=== PATIENT | female | born 1930 | race Caucasian/White ===

== ENCOUNTER 2017-08-14 22:55 | Emergency (ER) | payer MEDICARE ==
[~2017-08-14] VITALS: Ht 165.1 cm; Wt 60.8 kg
[~2017-08-14 22:55] MED LIST: ASPI81EC PO; ASTRAGALUS ROOT1 GM MC; Bactrim Ds Tab1 EACH PO; CALGLU500 PO; CHOL10002 PO; Curcumin1 GM MC; DICMIS50EC PO; ERGO400 PO; HYOS0.375T PO; LACT10SY PO; Lipo-Flavonoid1 EACH PO; PSYL5.85P PO; ROSU10TA PO; Zofran Odt4 MG PO; [UNRECOGNIZED DRUG - OTHER]
[2017-08-15 00:34] LABS: Source, Urine Voided
[2017-08-15 00:39] LABS: BASOPHILS ABSOLUTE AUTO 0.04 K/mm3 (0.00-0.23); BASOPHILS PERCENT AUTO 1 % (0-2); EOSINOPHILS ABSOLUTE AUTO 0.23 K/mm3 (0.00-0.68); EOSINOPHILS PERCENT AUTO 4 % (0-6); Hematocrit 38.6 % (33.0-51.0); IMMATURE GRAN PERCENT AUTO 0 % (0-1); LYMPHOCYTES ABSOLUTE AUTO 1.13 K/mm3 (0.84-5.20); LYMPHOCYTES PERCENT AUTO 21 % (21-46); MONOCYTES PERCENT AUTO 9 % (4-13); Mean Corpuscular HGB 32.7 pg (26.0-34.0); Mean Corpuscular HGB Conc 33.7 g/dL (31.5-36.5); Mean Corpuscular Volume 97 fL (80-100); NEUTROPHILS ABSOLUTE AUTO 3.47 K/mm3 (1.96-9.15); NEUTROPHILS PERCENT AUTO 65 % (41-73); Platelet Count 273 K/mm3 (150-400); RDW Coefficient Variation 11.8 % (11.7-14.2); RDW Standard Deviation 42.6 fL (35.1-46.3); Red Blood Cell Count 3.97 M/mm3 (3.80-5.20); White Blood Cell Count 5.37 K/mm3 (4.00-11.30)
[2017-08-15 00:40] LABS: Bilirubin, Urine Neg (Neg); Blood, Urine 3+ (Neg); Glucose Qualitative, Urine Neg (Neg); Ketones, Urine Neg (Neg); Leukocyte Esterase, Urine 2+ (Neg); Nitrite, Urine Neg (Neg); Protein, Urine Neg (Neg); Urobilinogen, Urine NORM (Normal); pH, Urine 6.5 (5.0-8.0)
[2017-08-15 00:48] LABS: Appearance, Urine Hazy (Clear); Color, Urine Yellow (P-Yellow)
[2017-08-15 00:49] LABS: Amorphous Light (0-Heavy); Bacteria Mod /hpf; Hyaline Casts 0-2 /lpf (0-2); Red Blood Cells, Urine 0-2 /hpf (0-2); Squamous Epithelial Cells Few /hpf (Few)
[2017-08-15 00:54] LABS: Alanine Aminotransfer (ALT/SGP 41 U/L (12-78); Albumin, Blood 3.6 g/dL (3.4-5.0); Alk Phos 80 U/L (50-136); Anion Gap 8 mmol/L (6-16); Aspartate Aminotrans (AST/SGOT 28 U/L (12-37); Bilirubin, Total 0.3 mg/dL (0.1-1.0); Blood Urea Nitrogen 27 mg/dL (8-24); Bun/Creatinine Ratio 56.1 (12.0-20.0); CO2, Blood 25 mmol/L (21-32); Calcium, Blood 8.8 mg/dL (8.5-10.1); Chloride, Blood 110 mmol/L (98-108); Creatinine, Blood 0.48 mg/dL (0.40-1.00); Globulin, Blood 3.5 g/dL (2.2-4.0); Glomerular Filtration Rate >60 (60-); Glucose, Blood 129 mg/dL (70-99); Sodium, Blood 143 mmol/L (136-145); Total Protein, Blood 7.1 g/dL (6.4-8.2); Troponin I <0.015 ng/mL (0.000-0.040)
== END 2017-08-15 02:38 | disposition home or self-care (01) ==
LOC: ER 22:55
PROVIDERS: Emergency Medicine
DX: R42 Dizziness and giddiness (principal); E78.00 Pure hypercholesterolemia, unspecified; Z88.5 Allergy status to narcotic agent; Z88.6 Allergy status to analgesic agent; Z88.1 Allergy status to other antibiotic agents; Z79.899 Other long term (current) drug therapy; Z79.82 Long term (current) use of aspirin
CPT/HCPCS: 80053; 81001; 84484; 85025; 87086; 93005; 93010; 99283

== ENCOUNTER 2018-05-20 12:14 | Emergency (ER) | payer MEDICARE ==
[~2018-05-20] VITALS: Ht 165.1 cm; Wt 61.2 kg
== END 2018-05-20 14:14 | disposition home or self-care (01) ==
LOC: ER 12:14
DX: S09.90XA Unspecified injury of head, initial encounter (principal); R03.0 Elevated blood-pressure reading, without diagnosis of hypertension; W01.198A Fall on same level from slipping, tripping and stumbling with subsequent striking against other object, initial encounter; Z88.5 Allergy status to narcotic agent; Z88.8 Allergy status to other drugs, medicaments and biological substances; Z88.1 Allergy status to other antibiotic agents; Z79.82 Long term (current) use of aspirin; Z79.899 Other long term (current) drug therapy; E78.00 Pure hypercholesterolemia, unspecified
CPT/HCPCS: 70450; 99283-25

== ENCOUNTER → 2018-07-17 | Outpatient (CLI) | payer MEDICARE ==
[2018-07-19 15:06] LABS: HPV 16 Negative (Negative); HPV 18 Negative (Negative); HPV OTHER HR TYPES Negative (Negative)
== END | disposition home or self-care (01) ==
LOC: LAB SHORT 12:30 → LAB 12:30
PROVIDERS: Nurse Practitioner Women's Health
DX: Z12.4 Encounter for screening for malignant neoplasm of cervix (principal)
CPT/HCPCS: 87624; G0123

== ENCOUNTER → 2018-08-18 | Outpatient (CLI) | payer MEDICARE | END | disposition home or self-care (01) | LOC: LAB SHORT 13:50 → PLD 13:50 | DX: R93.89 Abnormal findings on diagnostic imaging of other specified body structures (principal) | CPT/HCPCS: 88305 ==

== ENCOUNTER → 2019-11-21 | Outpatient (CLI) | payer MEDICARE | END | disposition home or self-care (01) | LOC: LAB 14:08 → LAB SHORT 14:08 | DX: D48.5 Neoplasm of uncertain behavior of skin (principal) | CPT/HCPCS: 88305 ==

== ENCOUNTER 2019-12-13 08:29 | Inpatient (IN) | payer MEDICARE ==
[~2019-12-13] VITALS: Ht 160 cm; Wt 61.2 kg
[~2019-12-13 08:29] MED LIST changes: -ASPI81EC PO; +Aspir 8181 MG PO; -CHOL10002 PO; +POLYOX WSR-3011 GM PO; +VITAMIN D33000 UNIT PO
[2019-12-13 09:14] LABS: BASOPHILS ABSOLUTE AUTO 0.04 K/mm3 (0.00-0.23); BASOPHILS PERCENT AUTO 1 % (0-2); EOSINOPHILS ABSOLUTE AUTO 0.19 K/mm3 (0.00-0.68); EOSINOPHILS PERCENT AUTO 3 % (0-6); Hematocrit 40.9 % (33.0-51.0); Hemoglobin 13.2 g/dL (11.5-16.0); IMMATURE GRAN ABSOLUTE AUTO 0.01 K/mm3 (0.00-0.10); IMMATURE GRAN PERCENT AUTO 0 % (0-1); LYMPHOCYTES ABSOLUTE AUTO 1.63 K/mm3 (0.84-5.20); LYMPHOCYTES PERCENT AUTO 28 % (21-46); MONOCYTES ABSOLUTE AUTO 0.54 K/mm3 (0.16-1.47); MONOCYTES PERCENT AUTO 9 % (4-13); Mean Corpuscular HGB 31.4 pg (26.0-34.0); Mean Corpuscular HGB Conc 32.3 g/dL (31.5-36.5); Mean Corpuscular Volume 97 fL (80-100); Mean Platelet Volume 9.4 fL (9.1-12.4); NEUTROPHILS ABSOLUTE AUTO 3.45 K/mm3 (1.96-9.15); NEUTROPHILS PERCENT AUTO 59 % (41-73); Platelet Count 260 K/mm3 (150-400); RDW Coefficient Variation 12.5 % (11.7-14.2); RDW Standard Deviation 44.7 fL (35.1-46.3); Red Blood Cell Count 4.21 M/mm3 (3.80-5.20); White Blood Cell Count 5.86 K/mm3 (4.00-11.30)
[2019-12-13 09:33] LABS: Alanine Aminotransfer (ALT/SGP 29 U/L (12-78); Albumin, Blood 3.6 g/dL (3.4-5.0); Alk Phos 81 U/L (50-136); Anion Gap 5 mmol/L (6-16); Aspartate Aminotrans (AST/SGOT 18 U/L (12-37); Bilirubin, Total 0.4 mg/dL (0.1-1.0); Blood Urea Nitrogen 18 mg/dL (8-24); Bun/Creatinine Ratio 33.5 (12.0-20.0); CO2, Blood 26 mmol/L (21-32); Chloride, Blood 110 mmol/L (98-108); Creatinine, Blood 0.54 mg/dL (0.40-1.00); Globulin, Blood 3.6 g/dL (2.2-4.0); Glomerular Filtration Rate >60 (60-); Glucose, Blood 94 mg/dL (70-99); Potassium, Blood 4.3 mmol/L (3.5-5.5); Sodium, Blood 141 mmol/L (136-145); Total Protein, Blood 7.2 g/dL (6.4-8.2)
[2019-12-13] MEDS ORDERED: ROSUVASTATIN CA10 MG PO (11:49)
[2019-12-13] MEDS ORDERED: CONSTULOSE10 GM/152 PO (11:49)
[2019-12-13] MEDS ORDERED: PROG100 PO (11:50)
[2019-12-13] MEDS ORDERED: DICLOFENAC MIS PO (11:51)
[2019-12-13] MEDS ORDERED: EFUDEX40 GM TOP (12:03)
[2019-12-13] MEDS ORDERED: AMLO5 PO (12:09)
[2019-12-13] MEDS ORDERED: ARTIFICIAL TEAR15 M2 BOTHEYES (12:14)
[2019-12-13] MEDS ORDERED: METAMUCIL POWD575 GM PO (14:31)
[2019-12-13] MEDS ORDERED: COQ-10100 MG PO (14:55)
[2019-12-13] MEDS ORDERED: GENTEAL TEARS S10 GM BOTHEYES (14:56)
[2019-12-13] MEDS ORDERED: MULTI-VITAMIN1 EAC2 PO (14:57)
--- NOTE | 2019-12-13 16:39 | NUR ---
SHIFT SUMMARY PATIENT ARRIVED TO THE ROOM APPROX 1400 FROM ER. NEURO CHECKS ARE UNREMARKABLE. SHE REPORTS HER LEG STILL FEELS "HEAVY" BUT IS MUCH IMPROVED SINCE PRIOR TO ARRIVAL. STRENGTH IN BLE AND BUE EQUAL. PERRLA. ABLE TO AMBULATE WITH VERBAL CUES. OT SIGNED OFF TODAY. PT STILL TO EVALUATE. DENIES PAIN AND NEEDS. VERY POARCH.
--- NOTE | 2019-12-14 03:58 | NUR ---
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 APPEARED TO SLEEP MOST OF SHIFT. DENIES PAIN. REPORTS N/T TO LOWER EXTREMITY, NO FACIAL DROOP NOTED. 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 BREATHING IS UNLABORED. NO ACUTE CHANGES AT THIS TIME. BED IN LOWEST POSITON WITH CALL LIGHT IN REACH. WILL CONTINUE TO MONITOR AND REPORT TO ONCOMING RN.
[2019-12-14 05:35] LABS: BASOPHILS ABSOLUTE AUTO 0.03 K/mm3 (0.00-0.23); BASOPHILS PERCENT AUTO 1 % (0-2); EOSINOPHILS ABSOLUTE AUTO 0.18 K/mm3 (0.00-0.68); EOSINOPHILS PERCENT AUTO 3 % (0-6); Hematocrit 38.9 % (33.0-51.0); Hemoglobin 12.7 g/dL (11.5-16.0); IMMATURE GRAN ABSOLUTE AUTO 0.01 K/mm3 (0.00-0.10); IMMATURE GRAN PERCENT AUTO 0 % (0-1); LYMPHOCYTES ABSOLUTE AUTO 1.51 K/mm3 (0.84-5.20); LYMPHOCYTES PERCENT AUTO 28 % (21-46); MONOCYTES ABSOLUTE AUTO 0.58 K/mm3 (0.16-1.47); MONOCYTES PERCENT AUTO 11 % (4-13); Mean Corpuscular HGB 31.3 pg (26.0-34.0); Mean Corpuscular HGB Conc 32.6 g/dL (31.5-36.5); Mean Corpuscular Volume 96 fL (80-100); Mean Platelet Volume 9.6 fL (9.1-12.4); NEUTROPHILS ABSOLUTE AUTO 3.04 K/mm3 (1.96-9.15); NEUTROPHILS PERCENT AUTO 57 % (41-73); Platelet Count 256 K/mm3 (150-400); RDW Coefficient Variation 12.5 % (11.7-14.2); RDW Standard Deviation 44.6 fL (35.1-46.3); Red Blood Cell Count 4.06 M/mm3 (3.80-5.20); White Blood Cell Count 5.35 K/mm3 (4.00-11.30)
[2019-12-14 05:57] LABS: Alanine Aminotransfer (ALT/SGP 30 U/L (12-78); Albumin, Blood 3.3 g/dL (3.4-5.0); Alk Phos 71 U/L (50-136); Anion Gap 5 mmol/L (6-16); Aspartate Aminotrans (AST/SGOT 15 U/L (12-37); Bilirubin, Total 0.3 mg/dL (0.1-1.0); Blood Urea Nitrogen 21 mg/dL (8-24); Bun/Creatinine Ratio 35.4 (12.0-20.0); CO2, Blood 28 mmol/L (21-32); Calcium, Blood 9.3 mg/dL (8.5-10.1); Chloride, Blood 108 mmol/L (98-108); Creatinine, Blood 0.59 mg/dL (0.40-1.00); Globulin, Blood 3.3 g/dL (2.2-4.0); Glomerular Filtration Rate >60 (60-); Glucose, Blood 89 mg/dL (70-99); Potassium, Blood 4.4 mmol/L (3.5-5.5); Sodium, Blood 141 mmol/L (136-145); Total Protein, Blood 6.6 g/dL (6.4-8.2)
[2019-12-14] MEDS ORDERED: CLOP75 PO (15:41)
[2019-12-14] MEDS ORDERED: LOSA25 PO (15:41)
--- NOTE | 2019-12-14 16:31 | NUR ---
CALLED IN PATIENT'S MEDICATIONS. DENIES ANY CONCERNS AT THIS TIME. SHE REPORTS THAT HER SON TRIED TO PICK THEM UP AND THEY HAD NOTHING THERE. WILL REMOVE HER IV AND HAVE HER READY FOR DISCHARGE.
--- NOTE | 2019-12-14 18:11 | NUR ---
discharge summary patient iv removed. all instructions talked through with the patient. she denies any extra need for education. medications called to [facility].d enies any other concerns.
== END 2019-12-14 18:46 | disposition home health service (06) | DRG 65 ==
LOC: ER 08:29 → MEDS 12:30 → ENPENDDIS 12-14 15:23 → MEDS 12-14 18:46
PROVIDERS: Physician Assistant; ADMIT Family Medicine
DX: I63.9 Cerebral infarction, unspecified (principal); G81.94 Hemiplegia, unspecified affecting left nondominant side; R29.810 Facial weakness; E78.00 Pure hypercholesterolemia, unspecified; M19.90 Unspecified osteoarthritis, unspecified site; K58.9 Irritable bowel syndrome, unspecified; Z88.8 Allergy status to other drugs, medicaments and biological substances; Z88.5 Allergy status to narcotic agent; Z79.82 Long term (current) use of aspirin; Z79.899 Other long term (current) drug therapy; Z82.3 Family history of stroke
CPT/HCPCS: 36415; 70450; 70496; 70498; 70551; 80053; 82947; 85025; 93005; 93010; 93306; 97110; 97116; 97162; 97165; 97535; 99285-25; A9270-GY; J1650; Q9967

== ENCOUNTER 2020-05-23 21:16 | Emergency (ER) | payer MEDICARE ==
[~2020-05-23] VITALS: Ht 162.6 cm; Wt 61.2 kg
[~2020-05-23 21:16] MED LIST changes: +AMLO5 PO; +ARTIFICIAL TEAR15 M2 BOTHEYES; +CLOP75 PO; +CONSTULOSE10 GM/152 PO; +COQ-10100 MG PO; +DICLOFENAC MIS PO; +EFUDEX40 GM TOP; +GENTEAL TEARS S10 GM BOTHEYES; +LOSA25 PO; +METAMUCIL POWD575 GM PO; +MULTI-VITAMIN1 EAC2 PO; +PROG100 PO; +ROSUVASTATIN CA10 MG PO
[2020-05-23] MEDS ORDERED: GENTEAL TEARS S10 GM (22:00)
[2020-05-23 22:01] LABS: BASOPHILS ABSOLUTE AUTO 0.05 K/mm3 (0.00-0.23); BASOPHILS PERCENT AUTO 1 % (0-2); EOSINOPHILS ABSOLUTE AUTO 0.17 K/mm3 (0.00-0.68); EOSINOPHILS PERCENT AUTO 3 % (0-6); Hematocrit 38.2 % (33.0-51.0); Hemoglobin 12.9 g/dL (11.5-16.0); IMMATURE GRAN ABSOLUTE AUTO 0.01 K/mm3 (0.00-0.10); IMMATURE GRAN PERCENT AUTO 0 % (0-1); LYMPHOCYTES ABSOLUTE AUTO 1.52 K/mm3 (0.84-5.20); LYMPHOCYTES PERCENT AUTO 25 % (21-46); MONOCYTES ABSOLUTE AUTO 0.61 K/mm3 (0.16-1.47); MONOCYTES PERCENT AUTO 10 % (4-13); Mean Corpuscular HGB Conc 33.8 g/dL (31.5-36.5); Mean Corpuscular Volume 95 fL (80-100); Mean Platelet Volume 9.4 fL (9.1-12.4); NEUTROPHILS ABSOLUTE AUTO 3.79 K/mm3 (1.96-9.15); NEUTROPHILS PERCENT AUTO 62 % (41-73); Platelet Count 287 K/mm3 (150-400); RDW Coefficient Variation 11.9 % (11.7-14.2); RDW Standard Deviation 41.7 fL (35.1-46.3); Red Blood Cell Count 4.03 M/mm3 (3.80-5.20); White Blood Cell Count 6.15 K/mm3 (4.00-11.30)
[2020-05-23] MEDS ORDERED: CURCUMIN PO (22:02)
[2020-05-23] MEDS ORDERED: BIOTIN1 MG (22:02)
[2020-05-23] MEDS ORDERED: BIOASTIN PO (22:03)
[2020-05-23 22:22] LABS: Alanine Aminotransfer (ALT/SGP 32 U/L (12-78); Albumin, Blood 3.7 g/dL (3.4-5.0); Albumin/Globulin Ratio 1.1 (0.8-1.8); Alk Phos 81 U/L (50-136); Anion Gap 6 mmol/L (6-16); Aspartate Aminotrans (AST/SGOT 26 U/L (12-37); Bilirubin, Total 0.6 mg/dL (0.1-1.0); Blood Urea Nitrogen 23 mg/dL (8-24); Bun/Creatinine Ratio 42.8 (12.0-20.0); CO2, Blood 26 mmol/L (21-32); Chloride, Blood 106 mmol/L (98-108); Creatinine, Blood 0.54 mg/dL (0.40-1.00); Globulin, Blood 3.5 g/dL (2.2-4.0); Glomerular Filtration Rate >60 (60-); Glucose, Blood 125 mg/dL (70-99); Potassium, Blood 4.4 mmol/L (3.5-5.5); Sodium, Blood 138 mmol/L (136-145); Total Protein, Blood 7.2 g/dL (6.4-8.2); Troponin I <0.015 ng/mL (0.000-0.040)
[2020-05-23 23:57] LABS: Source, Urine Clean Catch
[2020-05-23 23:59] LABS: Bilirubin, Urine Neg (Neg); Blood, Urine 1+ (Neg); Glucose Qualitative, Urine Neg (Neg); Ketones, Urine Neg (Neg); Leukocyte Esterase, Urine 1+ (Neg); Nitrite, Urine Pos (Neg); Protein, Urine Neg (Neg); Urobilinogen, Urine NORM (Normal); pH, Urine 6.5 (5.0-8.0)
[2020-05-24 00:08] LABS: Appearance, Urine Hazy (Clear); Color, Urine Yellow (P-Yellow)
[2020-05-24 00:09] LABS: Bacteria Many /hpf; Red Blood Cells, Urine Rare /hpf (0-2); Squamous Epithelial Cells Not Seen /hpf (Few)
[2020-05-24] MEDS ORDERED: CEFP200 PO (00:18)
== END 2020-05-24 00:57 | disposition home or self-care (01) ==
LOC: ER 21:16
PROVIDERS: Emergency Medicine; Physician Assistant
DX: N39.0 Urinary tract infection, site not specified (principal); Z88.5 Allergy status to narcotic agent; Z88.6 Allergy status to analgesic agent; Z88.1 Allergy status to other antibiotic agents; Z79.02 Long term (current) use of antithrombotics/antiplatelets; Z79.899 Other long term (current) drug therapy
CPT/HCPCS: 36415; 71046; 80053; 81001; 84484; 85025; 87077; 87086; 87186; 93005; 93010; 99284-25; A9270

== ENCOUNTER → 2021-02-03 | Outpatient (CLI) | payer OTHER ==
[~2021-02-03] MED LIST changes: +BIOASTIN PO; +BIOTIN1 MG; +CEFP200 PO; +CURCUMIN PO; +GENTEAL TEARS S10 GM
== END | disposition home or self-care (01) ==
LOC: LAB SHORT 13:41 → LAB 13:41
DX: D48.5 Neoplasm of uncertain behavior of skin (principal)
CPT/HCPCS: 88304